=== PATIENT | male | born 2000 | race Caucasian/White ===

== ENCOUNTER 2022-03-21 16:11 | Emergency (ER) | payer SELFPAY ==
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
[2022-03-21 16:30] VITALS: BP 111/74; PULSE 64; RESP 18
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
== END 2022-03-21 18:16 | disposition home or self-care (01) ==
PROVIDERS: Emergency Provider Emergency Medicine
DX: S49.82XA Other specified injuries of left shoulder and upper arm, initial encounter (principal); V19.9XXA Pedal cyclist (driver) (passenger) injured in unspecified traffic accident, initial encounter
CPT/HCPCS: 99283; 73030